=== PATIENT | male | born 1950 | race Caucasian/White ===

== ENCOUNTER 2017-09-16 07:31 | Emergency (ER) | payer OTHER ==
[~2017-09-16] VITALS: Ht 172.7 cm; Wt 90.7 kg
[~2017-09-16 07:31] MED LIST: ASPI325; ASPI325 PO; ASPI81CH PO; ASPI81EC PO; AZAT50 PO; AZIT250 PO; BENZ100A PO; CIPR500 PO; D3-20002000 UNIT PO; EXEN5PENI SQ; EXENATIDE; FISH1000 PO; FLUT220OIA INH; GLIP10 PO; GLIP10ER PO; Glucagon Emergen1 MG IJ; HYDMOR2 PO; INSU100I6; INSULANI SC; INSULANPEN SQ; INTE30I SC; LEVO750 PO; LISI5 PO; LOSA25 PO; METF500 PO; METF500C; OMEP20ER PO; OXCA300 PO; PIOG45; PIOG45 PO; PRAV20 PO; PRAV40 PO; PRED20 PO; Pravachol80 MG PO; [UNRECOGNIZED DRUG - OTHER]; [UNRECOGNIZED DRUG - REMARK]
[2017-09-16] MEDS ORDERED: GLIP10ER PO (07:55)
[2017-09-16] MEDS ORDERED: LIRA0.6P (07:55)
[2017-09-16] MEDS ORDERED: LOSA25 PO (07:55)
[2017-09-16] MEDS ORDERED: INSDET100 (07:55)
[2017-09-16] MEDS ORDERED: METF500 PO (07:56)
[2017-09-16] MEDS ORDERED: TAMS.4ER PO (07:56)
[2017-09-16] MEDS ORDERED: ATOR40TA PO (07:56)
[2017-09-16] MEDS ORDERED: ASPI81CH PO (07:56)
[2017-09-16] MEDS ORDERED: PIOG30 PO (07:56)
[2017-09-16] MEDS ORDERED: FISH OIL EC 1,1 EAC1 PO (07:57)
[2017-09-16] MEDS ORDERED: Omeprazole20 M1 PO (07:57)
[2017-09-16] MEDS ORDERED: BIOTIN10000 MC1 PO (07:57)
[2017-09-16] MEDS ORDERED: CHOL10002 (07:58)
[2017-09-16 08:32] LABS: BASOPHILS ABSOLUTE AUTO 0.05 K/mm3 (0.00-0.23); BASOPHILS PERCENT AUTO 0 % (0-2); EOSINOPHILS ABSOLUTE AUTO 0.31 K/mm3 (0.00-0.68); EOSINOPHILS PERCENT AUTO 2 % (0-6); IMMATURE GRAN ABSOLUTE AUTO 0.07 K/mm3 (0.00-0.10); IMMATURE GRAN PERCENT AUTO 1 % (0-1); LYMPHOCYTES ABSOLUTE AUTO 0.94 K/mm3 (0.84-5.20); LYMPHOCYTES PERCENT AUTO 7 % (21-46); MONOCYTES ABSOLUTE AUTO 1.24 K/mm3 (0.16-1.47); MONOCYTES PERCENT AUTO 10 % (4-13); Mean Corpuscular HGB 31.6 pg (26.0-34.0); Mean Corpuscular HGB Conc 33.3 g/dL (31.5-36.5); Mean Corpuscular Volume 95 fL (80-100); Mean Platelet Volume 10.4 fL (9.1-12.4); NEUTROPHILS ABSOLUTE AUTO 10.05 K/mm3 (1.96-9.15); NEUTROPHILS PERCENT AUTO 79 % (41-73); Platelet Count 210 K/mm3 (150-400); RDW Coefficient Variation 13.4 % (11.7-14.2); RDW Standard Deviation 46.8 fL (35.1-46.3); Red Blood Cell Count 4.12 M/mm3 (4.30-5.90); White Blood Cell Count 12.66 K/mm3 (4.00-11.30)
[2017-09-16 08:45] LABS: Alanine Aminotransfer (ALT/SGP 22 U/L (12-78); Albumin, Blood 3.4 g/dL (3.4-5.0); Albumin/Globulin Ratio 0.9 (0.8-1.8); Alk Phos 73 U/L (50-136); Anion Gap 10 mmol/L (6-16); Aspartate Aminotrans (AST/SGOT 14 U/L (12-37); Bilirubin, Total 0.5 mg/dL (0.1-1.0); Blood Urea Nitrogen 21 mg/dL (8-24); Bun/Creatinine Ratio 29.6 (12.0-20.0); CO2, Blood 23 mmol/L (21-32); Calcium, Blood 8.7 mg/dL (8.5-10.1); Chloride, Blood 109 mmol/L (98-108); Creatinine, Blood 0.71 mg/dL (0.60-1.20); Globulin, Blood 3.7 g/dL (2.2-4.0); Glomerular Filtration Rate >60 (60-); Glucose, Blood 113 mg/dL (70-99); Sodium, Blood 142 mmol/L (136-145); Total Protein, Blood 7.1 g/dL (6.4-8.2)
[2017-09-16] MEDS ORDERED: Loperamide2 MG PO (09:00)
== END 2017-09-16 10:49 | disposition home or self-care (01) ==
LOC: ER 07:31
PROVIDERS: Physician Assistant
DX: R19.7 Diarrhea, unspecified (principal); E11.9 Type 2 diabetes mellitus without complications; Z87.891 Personal history of nicotine dependence; Z88.8 Allergy status to other drugs, medicaments and biological substances; Z79.4 Long term (current) use of insulin; Z79.82 Long term (current) use of aspirin; Z79.899 Other long term (current) drug therapy
CPT/HCPCS: 36415; 80053; 85025; 96360; 96361; 99283; J2405; J7030

== ENCOUNTER → 2017-12-02 | Outpatient (CLI) | payer OTHER ==
[~2017-12-02] MED LIST changes: +ATOR40TA PO; +BIOTIN10000 MC1 PO; +CHOL10002; +FISH OIL EC 1,1 EAC1 PO; +INSDET100; +LIRA0.6P; +Loperamide2 MG PO; +Omeprazole20 M1 PO; +PIOG30 PO; +TAMS.4ER PO
[2017-12-02 16:41] LABS: Appearance, Urine Hazy (Clear); Bilirubin, Urine Neg (Neg); Blood, Urine 1+ (Neg); Color, Urine Yellow (P-Yellow); Glucose Qualitative, Urine Neg (Neg); Ketones, Urine Neg (Neg); Leukocyte Esterase, Urine 2+ (Neg); Nitrite, Urine Neg (Neg); Protein, Urine Neg (Neg); Specific Gravity, Urine 1.005 (1.003-1.022); Urobilinogen, Urine NORM (Normal)
[2017-12-02 17:16] LABS: Bacteria Many /hpf; Squamous Epithelial Cells Rare /hpf (Few)
== END | disposition home or self-care (01) ==
LOC: LAB 16:29 → LAB SHORT 16:29
PROVIDERS: Internal Medicine Hematology & Oncology
DX: R39.15 Urgency of urination (principal); R35.0 Frequency of micturition
CPT/HCPCS: 81001; 87086; 87186

== ENCOUNTER 2020-07-21 20:10 | Observation (INO) | payer OTHER ==
[~2020-07-21] VITALS: Ht 172.7 cm; Wt 88.5 kg
[2020-07-21 20:53] LABS: BASOPHILS ABSOLUTE AUTO 0.05 K/mm3 (0.00-0.23); BASOPHILS PERCENT AUTO 1 % (0-2); EOSINOPHILS ABSOLUTE AUTO 0.15 K/mm3 (0.00-0.68); EOSINOPHILS PERCENT AUTO 2 % (0-6); Hematocrit 39.6 % (37.0-53.0); Hemoglobin 12.8 g/dL (13.5-17.5); IMMATURE GRAN ABSOLUTE AUTO 0.02 K/mm3 (0.00-0.10); IMMATURE GRAN PERCENT AUTO 0 % (0-1); LYMPHOCYTES PERCENT AUTO 32 % (21-46); MONOCYTES ABSOLUTE AUTO 0.73 K/mm3 (0.16-1.47); MONOCYTES PERCENT AUTO 11 % (4-13); Mean Corpuscular HGB 30.9 pg (26.0-34.0); Mean Corpuscular HGB Conc 32.3 g/dL (31.5-36.5); Mean Corpuscular Volume 96 fL (80-100); Mean Platelet Volume 10.2 fL (9.1-12.4); NEUTROPHILS PERCENT AUTO 54 % (41-73); Platelet Count 203 K/mm3 (150-400); RDW Coefficient Variation 13.2 % (11.7-14.2); Red Blood Cell Count 4.14 M/mm3 (4.30-5.90); White Blood Cell Count 6.65 K/mm3 (4.00-11.30)
[2020-07-21 21:13] LABS: Alanine Aminotransfer (ALT/SGP 24 U/L (12-78); Albumin, Blood 3.6 g/dL (3.4-5.0); Albumin/Globulin Ratio 0.9 (0.8-1.8); Alk Phos 85 U/L (50-136); Anion Gap 7 mmol/L (6-16); Aspartate Aminotrans (AST/SGOT 15 U/L (12-37); Bilirubin, Total 0.3 mg/dL (0.1-1.0); Blood Urea Nitrogen 28 mg/dL (8-24); Bun/Creatinine Ratio 28.5 (12.0-20.0); CO2, Blood 26 mmol/L (21-32); Calcium, Blood 9.2 mg/dL (8.5-10.1); Chloride, Blood 109 mmol/L (98-108); Creatinine, Blood 0.98 mg/dL (0.60-1.20); Globulin, Blood 3.8 g/dL (2.2-4.0); Glomerular Filtration Rate >60 (60-); Glucose, Blood 106 mg/dL (70-99); Potassium, Blood 4.1 mmol/L (3.5-5.5); Sodium, Blood 142 mmol/L (136-145); Total Protein, Blood 7.4 g/dL (6.4-8.2); Troponin I <0.015 ng/mL (0.000-0.040)
--- NOTE | 2020-07-22 03:32 | NUR ---
PT ADMITTED FROM ER AT APPROX 2345. PT A&O X4. DURING ASSESSMENT, PT NOTED TO HAVE INTERMITTENT SLURRED SPEECH AND EXPRESSIVE APHASIA. PT BECOMING FRUSTURATED DURING THESE EPISODES. WHILE PATIENT WAS SIGNING BLOOD CONSENT, RT ARM BECAME WEAK AND NUMB. AFTER APPROX 20 SECONDS PT WAS ABLE TO USE ARM AGAIN. HE REPORTS THIS HAS BEEN HAPPENING INTERMITTENTLY THROUGHOUT THE DAY. PT REPORTS HX OF MULTIPLE SLEROSIS AND USES CANE AT BASELINE. LIVES BY HIMSELF, HOWEVER HIS DAUGHTER CHECKS IN WITH HIM FREQUENTLY AND COMPLETES DESIGN CENTER CONSULTANT. PT WEARING ATTENTS D/T INCONTINENCE. PT MEDICATED WITH PLAVIX PER ORDERS. IVF INFUSING PER EMAR. WILL CTM.
[2020-07-22 05:01] LABS: BASOPHILS ABSOLUTE AUTO 0.05 K/mm3 (0.00-0.23); BASOPHILS PERCENT AUTO 1 % (0-2); EOSINOPHILS ABSOLUTE AUTO 0.19 K/mm3 (0.00-0.68); EOSINOPHILS PERCENT AUTO 3 % (0-6); Hemoglobin 11.7 g/dL (13.5-17.5); IMMATURE GRAN ABSOLUTE AUTO 0.03 K/mm3 (0.00-0.10); IMMATURE GRAN PERCENT AUTO 1 % (0-1); LYMPHOCYTES ABSOLUTE AUTO 1.77 K/mm3 (0.84-5.20); LYMPHOCYTES PERCENT AUTO 31 % (21-46); MONOCYTES PERCENT AUTO 12 % (4-13); Mean Corpuscular HGB 30.3 pg (26.0-34.0); Mean Corpuscular HGB Conc 31.6 g/dL (31.5-36.5); Mean Corpuscular Volume 96 fL (80-100); Mean Platelet Volume 10.5 fL (9.1-12.4); NEUTROPHILS PERCENT AUTO 52 % (41-73); Platelet Count 191 K/mm3 (150-400); RDW Coefficient Variation 13.2 % (11.7-14.2); RDW Standard Deviation 46.5 fL (35.1-46.3); Red Blood Cell Count 3.86 M/mm3 (4.30-5.90); White Blood Cell Count 5.74 K/mm3 (4.00-11.30)
[2020-07-22 05:21] LABS: Alanine Aminotransfer (ALT/SGP 20 U/L (12-78); Albumin, Blood 3.2 g/dL (3.4-5.0); Albumin/Globulin Ratio 0.9 (0.8-1.8); Alk Phos 82 U/L (50-136); Anion Gap 8 mmol/L (6-16); Aspartate Aminotrans (AST/SGOT 13 U/L (12-37); Bilirubin, Total 0.3 mg/dL (0.1-1.0); Blood Urea Nitrogen 23 mg/dL (8-24); Bun/Creatinine Ratio 25.3 (12.0-20.0); CO2, Blood 26 mmol/L (21-32); Calcium, Blood 8.9 mg/dL (8.5-10.1); Chloride, Blood 108 mmol/L (98-108); Creatinine, Blood 0.91 mg/dL (0.60-1.20); Globulin, Blood 3.4 g/dL (2.2-4.0); Glomerular Filtration Rate >60 (60-); Glucose, Blood 119 mg/dL (70-99); Sodium, Blood 142 mmol/L (136-145); Total Protein, Blood 6.6 g/dL (6.4-8.2)
[2020-07-22] MEDS ORDERED: Plavix75 MG PO (12:18)
--- NOTE | 2020-07-22 14:16 | NUR ---
DISHCARGE PT LEFT VIA WHEELCHAIR WITH DAUGHTER. ALL BELONGINGS SENT WITH PATIENT. CANE IN HAND. SCRIPTS SENT TO PHARMACY AND PT EDUCATED ON IMPORTANCE OF FALL PREVENTION AND FOLLOWING UP WITH H.H. IV REMOVED. PT HAD NO FURTHER QUESTIONS.
== END 2020-07-22 14:10 | disposition home or self-care (01) ==
LOC: ER 20:10 → SURS 20:11
PROVIDERS: Physician Assistant; ADMIT Internal Medicine
DX: I63.9 Cerebral infarction, unspecified (principal); R47.81 Slurred speech; R20.0 Anesthesia of skin; R47.01 Aphasia; I65.22 Occlusion and stenosis of left carotid artery; E11.9 Type 2 diabetes mellitus without complications; I10 Essential (primary) hypertension; E78.5 Hyperlipidemia, unspecified; K21.9 Gastro-esophageal reflux disease without esophagitis; Z88.8 Allergy status to other drugs, medicaments and biological substances; Z87.891 Personal history of nicotine dependence; Z79.4 Long term (current) use of insulin
CPT/HCPCS: 36415; 70450; 70496; 70498; 80053; 82947; 84484; 85025; 92523; 93005; 93010; 96372; 97110; 97116; 97162; 99285-25; A9270; G0378; J1650; J7030; Q9967

== ENCOUNTER 2021-06-29 16:17 | Emergency (ER) | payer OTHER ==
[~2021-06-29] VITALS: Ht 172.7 cm; Wt 85.3 kg
[~2021-06-29 16:17] MED LIST changes: +Plavix75 MG PO
[2021-06-29 17:47] LABS: BASOPHILS ABSOLUTE AUTO 0.04 K/mm3 (0.00-0.23); BASOPHILS PERCENT AUTO 0 % (0-2); EOSINOPHILS ABSOLUTE AUTO 0.15 K/mm3 (0.00-0.68); EOSINOPHILS PERCENT AUTO 2 % (0-6); Hematocrit 39.8 % (37.0-53.0); Hemoglobin 13.4 g/dL (13.5-17.5); IMMATURE GRAN ABSOLUTE AUTO 0.07 K/mm3 (0.00-0.10); IMMATURE GRAN PERCENT AUTO 1 % (0-1); LYMPHOCYTES ABSOLUTE AUTO 1.37 K/mm3 (0.84-5.20); LYMPHOCYTES PERCENT AUTO 14 % (21-46); MONOCYTES ABSOLUTE AUTO 0.69 K/mm3 (0.16-1.47); MONOCYTES PERCENT AUTO 7 % (4-13); Mean Corpuscular HGB 31.2 pg (26.0-34.0); Mean Corpuscular HGB Conc 33.7 g/dL (31.5-36.5); Mean Corpuscular Volume 93 fL (80-100); Mean Platelet Volume 10.4 fL (9.1-12.4); NEUTROPHILS ABSOLUTE AUTO 7.42 K/mm3 (1.96-9.15); NEUTROPHILS PERCENT AUTO 76 % (41-73); Platelet Count 220 K/mm3 (150-400); RDW Coefficient Variation 13.1 % (11.7-14.2); RDW Standard Deviation 44.4 fL (35.1-46.3); Red Blood Cell Count 4.29 M/mm3 (4.30-5.90); White Blood Cell Count 9.74 K/mm3 (4.00-11.30)
[2021-06-29 18:03] LABS: Alanine Aminotransfer (ALT/SGP 21 U/L (12-78); Albumin/Globulin Ratio 1.2 (0.8-1.8); Alk Phos 89 U/L (50-136); Anion Gap 7 mmol/L (6-16); Aspartate Aminotrans (AST/SGOT 14 U/L (12-37); Bilirubin, Total 0.4 mg/dL (0.1-1.0); Blood Urea Nitrogen 27 mg/dL (8-24); Bun/Creatinine Ratio 28.7 (12.0-20.0); CO2, Blood 25 mmol/L (21-32); Calcium, Blood 9.3 mg/dL (8.5-10.1); Chloride, Blood 108 mmol/L (98-108); Creatinine, Blood 0.94 mg/dL (0.60-1.20); Globulin, Blood 3.4 g/dL (2.2-4.0); Glomerular Filtration Rate >60 (60-); Glucose, Blood 204 mg/dL (70-99); Potassium, Blood 4.2 mmol/L (3.5-5.5); Sodium, Blood 140 mmol/L (136-145); Total Protein, Blood 7.4 g/dL (6.4-8.2)
== END 2021-06-29 19:51 | disposition home or self-care (01) ==
LOC: ER 16:17
PROVIDERS: Physician Assistant
DX: S16.1XXA Strain of muscle, fascia and tendon at neck level, initial encounter (principal); M54.6 Pain in thoracic spine; E11.9 Type 2 diabetes mellitus without complications; Z88.8 Allergy status to other drugs, medicaments and biological substances; Z79.899 Other long term (current) drug therapy; Z79.4 Long term (current) use of insulin; Z79.82 Long term (current) use of aspirin; Z79.02 Long term (current) use of antithrombotics/antiplatelets; V49.40XA Driver injured in collision with unspecified motor vehicles in traffic accident, initial encounter
CPT/HCPCS: 70450; 71260; 72125; 80053; 83690; 85025; Q9967

== ENCOUNTER 2022-05-23 12:14 | Emergency (ER) | payer OTHER ==
[~2022-05-23] VITALS: Ht 172.7 cm; Wt 81.7 kg
[2022-05-23 13:25] LABS: BASOPHILS ABSOLUTE AUTO 0.03 K/mm3 (0.00-0.23); BASOPHILS PERCENT AUTO 0 % (0-2); EOSINOPHILS PERCENT AUTO 0 % (0-6); Hematocrit 39.3 % (37.0-53.0); Hemoglobin 13.3 g/dL (13.5-17.5); IMMATURE GRAN ABSOLUTE AUTO 0.02 K/mm3 (0.00-0.10); IMMATURE GRAN PERCENT AUTO 0 % (0-1); LYMPHOCYTES ABSOLUTE AUTO 0.71 K/mm3 (0.84-5.20); LYMPHOCYTES PERCENT AUTO 8 % (21-46); MONOCYTES ABSOLUTE AUTO 1.11 K/mm3 (0.16-1.47); MONOCYTES PERCENT AUTO 13 % (4-13); Mean Corpuscular HGB 31.9 pg (26.0-34.0); Mean Corpuscular HGB Conc 33.8 g/dL (31.5-36.5); Mean Corpuscular Volume 94 fL (80-100); Mean Platelet Volume 10.6 fL (9.1-12.4); NEUTROPHILS PERCENT AUTO 79 % (41-73); Platelet Count 164 K/mm3 (150-400); RDW Coefficient Variation 12.7 % (11.7-14.2); RDW Standard Deviation 43.9 fL (35.1-46.3); Red Blood Cell Count 4.17 M/mm3 (4.30-5.90); White Blood Cell Count 8.77 K/mm3 (4.00-11.30)
[2022-05-23 13:39] LABS: Influenza B, PCR NEGATIVE (NEGATIVE); Resp Syncytial Virus, PCR NEGATIVE (NEGATIVE); SARS-Cov-2 (COVID-19) PCR, MMC NEGATIVE (NEGATIVE)
[2022-05-23 13:41] LABS: Magnesium, Blood 1.5 mg/dL (1.6-2.4)
[2022-05-23 13:41] LABS: Influenza A, PCR POSITIVE (NEGATIVE)
[2022-05-23 13:46] LABS: Albumin, Blood 3.3 g/dL (3.4-5.0); Albumin/Globulin Ratio 0.8 (0.8-1.8); Bilirubin, Total 0.4 mg/dL (0.1-1.0); Bun/Creatinine Ratio 23.4 (12.0-20.0); Calcium, Blood 8.6 mg/dL (8.5-10.1); Creatinine, Blood 1.11 mg/dL (0.60-1.20); Potassium, Blood 3.9 mmol/L (3.5-5.5); Total Protein, Blood 7.3 g/dL (6.4-8.2)
== END 2022-05-23 16:28 | disposition home or self-care (01) ==
LOC: ER 12:14
PROVIDERS: Physician Assistant; Student in an Organized Health Care Education/Training Program
DX: J10.1 Influenza due to other identified influenza virus with other respiratory manifestations (principal); E86.0 Dehydration; E83.42 Hypomagnesemia; R07.81 Pleurodynia; E11.9 Type 2 diabetes mellitus without complications; E78.5 Hyperlipidemia, unspecified; K21.9 Gastro-esophageal reflux disease without esophagitis; J44.9 Chronic obstructive pulmonary disease, unspecified; Z20.822 Contact with and (suspected) exposure to COVID-19; Z79.899 Other long term (current) drug therapy; Z79.4 Long term (current) use of insulin; Z79.82 Long term (current) use of aspirin; Z88.8 Allergy status to other drugs, medicaments and biological substances; Z86.73 Personal history of transient ischemic attack (TIA), and cerebral infarction without residual deficits
CPT/HCPCS: 0241U; 71045; 80053; 83690; 83735; 84484; 85025; 93005; 93010; 94640; 94664; J1885; J3475; J7030

== ENCOUNTER → 2022-12-23 | Outpatient (CLI) | payer OTHER | END | disposition home or self-care (01) | LOC: LAB SHORT 15:21 → LAB 15:21 | DX: N39.0 Urinary tract infection, site not specified (principal) | CPT/HCPCS: 87077; 87086; 87186 ==

== ENCOUNTER 2023-06-30 23:07 | Emergency (ER) | payer OTHER ==
[~2023-06-30] VITALS: Ht 165.1 cm; Wt 72.6 kg
[2023-07-01 02:10] VITALS: BP 118/97
[2023-07-01 02:12] LABS: Source, Urine Straight Cath
[2023-07-01 02:33] LABS: Bilirubin, Urine Neg (Neg); Blood, Urine 5+ (Neg); Glucose Qualitative, Urine 2+ (Neg); Ketones, Urine Neg (Neg); Leukocyte Esterase, Urine 3+ (Neg); Nitrite, Urine Neg (Neg); Protein, Urine 3+ (Neg); Specific Gravity, Urine 1.015 (1.003-1.022); Urobilinogen, Urine NORM (Normal)
[2023-07-01 03:25] LABS: Appearance, Urine Hazy (Clear); Color, Urine Yellow (P-Yellow)
[2023-07-01 03:26] LABS: Bacteria Many /hpf; Squamous Epithelial Cells Mod /hpf (Few); White Blood Cells, Urine 50-100 /hpf (0-5)
[2023-07-01] MEDS ORDERED: CEPH500 PO (03:31)
== END 2023-07-01 03:40 | disposition home or self-care (01) ==
LOC: ER 23:07
PROVIDERS: Physician Assistant
DX: N39.0 Urinary tract infection, site not specified (principal); T83.89XA Other specified complication of genitourinary prosthetic devices, implants and grafts, initial encounter; J44.9 Chronic obstructive pulmonary disease, unspecified; E11.9 Type 2 diabetes mellitus without complications; K21.9 Gastro-esophageal reflux disease without esophagitis; E78.5 Hyperlipidemia, unspecified; Z88.8 Allergy status to other drugs, medicaments and biological substances; Z79.84 Long term (current) use of oral hypoglycemic drugs; Z79.4 Long term (current) use of insulin; Z79.82 Long term (current) use of aspirin; Z79.899 Other long term (current) drug therapy
CPT/HCPCS: 51102; 81001; 87086; 99283-25; A9270

== ENCOUNTER 2024-03-05 10:32 | Inpatient (IN) | payer OTHER ==
[~2024-03-05] VITALS: Ht 172.7 cm; Wt 77.8 kg
[~2024-03-05 10:32] MED LIST changes: +CEPH500 PO; +LOSA50 PO; -Omeprazole20 M1 PO
[2024-03-05 11:46] LABS: BASOPHILS ABSOLUTE AUTO 0.04 K/mm3 (0.00-0.23); BASOPHILS PERCENT AUTO 0 % (0-2); EOSINOPHILS ABSOLUTE AUTO 0.03 K/mm3 (0.00-0.68); EOSINOPHILS PERCENT AUTO 0 % (0-6); Hemoglobin 12.7 g/dL (13.5-17.5); IMMATURE GRAN ABSOLUTE AUTO 0.06 K/mm3 (0.00-0.10); IMMATURE GRAN PERCENT AUTO 1 % (0-1); LYMPHOCYTES ABSOLUTE AUTO 1.05 K/mm3 (0.84-5.20); LYMPHOCYTES PERCENT AUTO 8 % (21-46); MONOCYTES ABSOLUTE AUTO 0.72 K/mm3 (0.16-1.47); MONOCYTES PERCENT AUTO 6 % (4-13); Mean Corpuscular HGB 31.4 pg (26.0-34.0); Mean Corpuscular HGB Conc 33.4 g/dL (31.5-36.5); Mean Corpuscular Volume 94 fL (80-100); Mean Platelet Volume 10.2 fL (9.1-12.4); NEUTROPHILS ABSOLUTE AUTO 10.87 K/mm3 (1.96-9.15); NEUTROPHILS PERCENT AUTO 85 % (41-73); Platelet Count 209 K/mm3 (150-400); RDW Coefficient Variation 13.3 % (11.7-14.2); RDW Standard Deviation 46.2 fL (35.1-46.3); Red Blood Cell Count 4.04 M/mm3 (4.30-5.90); White Blood Cell Count 12.77 K/mm3 (4.00-11.30)
[2024-03-05 12:10] LABS: Albumin, Blood 3.7 g/dL (3.4-5.0); Bilirubin, Total 0.5 mg/dL (0.1-1.0); Bun/Creatinine Ratio 14.1 (12.0-20.0); Calcium, Blood 8.8 mg/dL (8.5-10.1); Creatinine, Blood 0.78 mg/dL (0.60-1.20); Globulin, Blood 3.7 g/dL (2.2-4.0); Potassium, Blood 4.1 mmol/L (3.5-5.5); Total Protein, Blood 7.4 g/dL (6.4-8.2)
[2024-03-05] MEDS ORDERED: Morphine Sulfate 4 MG/1 ML Injection IV ONE (15:20)
[2024-03-05] MEDS ORDERED: Piperacillin/Tazobactam Sod 4.5 GM in NS 100 ML IV ONE (15:20)
[2024-03-05] MEDS ORDERED: NS 1,000 ML IV SCH ×2 (16:40→18:30)
[2024-03-05] MEDS ORDERED: FentaNYL Citrate 50 MCG/ML 2 ML Injection IV PRN (16:40)
[2024-03-05] MEDS ORDERED: Ondansetron HCl 2 MG / ML 2ML Vial IV PRN (16:40)
[2024-03-05] MEDS ORDERED: Pantoprazole Sodium 40 MG Injection IV SCH (17:00)
[2024-03-05 18:46] VITALS: BP 127/68
--- NOTE | 2024-03-05 19:20 | NUR ---
ARRIVAL TO FLOOR PT ARRIVED TO SURGICAL FLOOR VIA GOURNEY. SLID ONTO HOSPITAL BED. PT A&O X2, COULD NOT TELL US WHERE HE WAS OR WHAT YEAR IT WAS. HE COULD NOT RECALL HOW HE GOT HERE. CHANGED PT INTO HOSPITAL GOWN. UNABLE TO SIT UP OR SUPPORT HIMSELF. SUP PUBIC CATH DRAINING YELLOW URINE. COMPLAINTS OF BACK AND ABDOMINAL PAIN. BELLY FIRM TO TOUCH AND DISTENDED. ABLE TO SQUEEZE HANDS EQUALLY WITH A WEAK DEBT MANAGEMENT COUNSELOR. HAS DIFFICULTY FOLLOWING DIRECTIONS AND COMMANDS DURING NEURO ASSESSMENT. DR MCCLOUD CAME IN TO ASSESS PT, GAVE VERBAL ORDERS TO TRANSFER TO PCU. FLUID BOLUS CONTINUES TO INFUSE AT THIS TIME. BED ALARM ON. CALL LIGHT WITHIN REACH. REMAINS ON TELE.
[2024-03-05] MEDS ORDERED: OLANZapine 10 MG Vial IM ONE (20:30)
--- NOTE | 2024-03-05 20:45 | NUR ---
AT SHIFT CHANGE,DAY RECEPTION SPECIALIST REPORTED THAT DR MCCLOUD WOULD BE ARRIVING TO CHECK PT.PT WAS ADMITTED FROM ER AND HAS HAD TACHYCARDIA,CHANGE OF MENTATION NOTED PER ER STAFF,& INABILITY TO STATE SPECIFICS OF HEALTH HX INCLUDING HOW S/P CATH GETS CHANGED AT HOME,HOW LONG HE HAS HAD IT, WELL BEING UNABLE TO STATE WHY HE WAS ADMITTED TO ER TODAY.DR MCCLOUD EVALUATED PT AND STATED U/A TO BE OBTAINED VIA S/P CATH WITHOUT CHANGING DUE TO POSSIBILITY ONCE REMOVED WE MAY NOT BE ABLE TO REPLACE.DR MCCLOUD ORDERED TRANSFER TO PCU.WHILE PENDING TRANSFER,PT WAS BECOMING AGGITATED TRYING TO GET OOB WITHOUT ASSIST.I EXPLAINED TO PT ORDERS AND REASON FOR TRANSFER.PT CONTINUED CLEARLY NOT UNDERSTANDING OF SITUATION.TRANSFERRED PT TO PCU VIA BED.PCU CHARGE GIVEN INFO WE OBTAINED PER DAY SHIFT AND AGREED TO ACCEPT PT'S CARE.PT FAMILY CALLED AND WERE IN WAITING ROOM. I NOTIFIED THEM THEY WERE ABLE TO COME TO PT ROOM.
[2024-03-05] MEDS ORDERED: Ampicillin Sod/Sulbactam Sod 3 GM in NS 100 ML IV SCH (21:00)
[2024-03-05 22:23] LABS: Source, Urine Suprapubic Cath
[2024-03-05 23:01] LABS: Bilirubin, Urine Neg (Neg); Blood, Urine 4+ (Neg); Glucose Qualitative, Urine 3+ (Neg); Ketones, Urine 1+ (Neg); Leukocyte Esterase, Urine 3+ (Neg); Nitrite, Urine Neg (Neg); Protein, Urine 2+ (Neg); Specific Gravity, Urine 1.015 (1.003-1.022); Urobilinogen, Urine NORM (Normal)
[2024-03-05 23:40] LABS: Appearance, Urine Hazy (Clear); Bacteria Mod /hpf; Color, Urine Yellow (P-Yellow); Red Blood Cells, Urine 0-2 /hpf (0-2); Squamous Epithelial Cells Rare /hpf (Few); Yeast/Fungi Urine Few /hpf
[2024-03-05 23:49] VITALS: BP 120/72
[2024-03-06] VITALS (13 sets, daily range): BP systolic 96–131; BP diastolic 61–102
[2024-03-06 03:57] LABS: BASOPHILS ABSOLUTE AUTO 0.04 K/mm3 (0.00-0.23); BASOPHILS PERCENT AUTO 0 % (0-2); EOSINOPHILS ABSOLUTE AUTO 0.05 K/mm3 (0.00-0.68); EOSINOPHILS PERCENT AUTO 0 % (0-6); Hematocrit 37.2 % (37.0-53.0); Hemoglobin 12.7 g/dL (13.5-17.5); IMMATURE GRAN ABSOLUTE AUTO 0.12 K/mm3 (0.00-0.10); IMMATURE GRAN PERCENT AUTO 1 % (0-1); LYMPHOCYTES ABSOLUTE AUTO 1.35 K/mm3 (0.84-5.20); LYMPHOCYTES PERCENT AUTO 6 % (21-46); MONOCYTES ABSOLUTE AUTO 1.75 K/mm3 (0.16-1.47); MONOCYTES PERCENT AUTO 8 % (4-13); Mean Corpuscular HGB 31.3 pg (26.0-34.0); Mean Corpuscular HGB Conc 34.1 g/dL (31.5-36.5); Mean Corpuscular Volume 92 fL (80-100); Mean Platelet Volume 10.3 fL (9.1-12.4); NEUTROPHILS ABSOLUTE AUTO 18.78 K/mm3 (1.96-9.15); NEUTROPHILS PERCENT AUTO 85 % (41-73); Platelet Count 188 K/mm3 (150-400); RDW Coefficient Variation 13.4 % (11.7-14.2); RDW Standard Deviation 45.1 fL (35.1-46.3); Red Blood Cell Count 4.06 M/mm3 (4.30-5.90); White Blood Cell Count 22.09 K/mm3 (4.00-11.30)
[2024-03-06 04:54] LABS: Albumin, Blood 3.2 g/dL (3.4-5.0); Albumin/Globulin Ratio 0.9 (0.8-1.8); Bilirubin, Total 0.7 mg/dL (0.1-1.0); Bun/Creatinine Ratio 15.3 (12.0-20.0); Calcium, Blood 8.8 mg/dL (8.5-10.1); Creatinine, Blood 0.78 mg/dL (0.60-1.20); Globulin, Blood 3.5 g/dL (2.2-4.0); Potassium, Blood 3.9 mmol/L (3.5-5.5); Total Protein, Blood 6.7 g/dL (6.4-8.2)
--- NOTE | 2024-03-06 05:22 | NUR ---
SHIFT SUMMARY ASSUMED CARE OF PT ON 03/05/24 AT APPROXIMATELY 2146. PT TRANSFERRED FROM SURGICAL FLOOR TO PCU 9 DUE TO ACUTE AMS. PT IS ALERT ONLY TO PERSON, HE IS UNSURE OF DATE, SITUATION, OR LOCATION. HE IS ABLE TO FOLLOW SOME DIRECTIONS, HE IS COOPERATIVE OF CARES, BED ALARM ON FOR SAFETY. SUPRAPUBIC CATHETER CHANGED THIS SHIFT BY THIS RN. PT TOLERATED WELL, UA SENT TO LAB. CATHETER DRAINING YELLOW URINE TO GRAVITY. PT HAS COMPLAINT OF ABDOMINAL PAIN, MEDICATED PER EMAR. HE HAS REMAINED NPO. NS INFUSING AT 75ML/HR. HE IS RESTING QUIETLY IN BED, CALL LIGHT WITHIN REACH, BREATHING EVEN AND UNLABORED.
[2024-03-06] MEDS ORDERED: Insulin Human Lispro 100 Units/ML 3ML Syringe SC SCH (07:30)
[2024-03-06] MEDS ORDERED: Losartan Potassium 25 MG Tab PO SCH (09:00)
[2024-03-06] MEDS ORDERED: Aspirin 81 MG Chew PO SCH (09:00)
[2024-03-06] MEDS ORDERED: Insulin Glargine-Yfgn 100 Unit/mL 3 ML SYR SC SCH (09:00)
[2024-03-06] MEDS ORDERED: Tamsulosin HCl 0.4 MG Cap PO SCH (09:00)
[2024-03-06] MEDS ORDERED: ATOR40TA PO (10:12)
[2024-03-06] MEDS ORDERED: TOUJEO MAX300 UNIT/2 SC (10:13)
--- NOTE | 2024-03-06 18:02 | NUR ---
SHIFT SUMMARY PT A/OX2-3. PT DAUGHTER PRESENT FOR MOST OF SHIFT AWAITING TO SIGN CONSENT FORMS FOR PT. PT VSS THROUGHOUT SHIFT WITH O2 SATS IN THE 90'S ON RA. NO REPORT OF CHEST PAIN/PRESSURE. NO REPORT OF SOB/DYSPNEA. PT ENDORSED PAIN OF HIS ABD TREATED PER EMAR AND UNINTERUPTED REST PER PT REQUEST. PT NPO ALL SHIFT AWAITING FOR PROCEDURE. PT LEFT PCU FOR PROCEDURE AT 1800, DAUGHTER PRESENT AND WITH PT AT TIME OF HEADING TO PROCEDURE. PT SP CATHETER REMAINED PATENT, MIRTA URINE.
[2024-03-06] MEDS ORDERED: Lactated Ringer's 1,000 ML IV ONE (18:05)
[2024-03-06] MEDS ORDERED: Indocyanine Green 25 MG Vial IV STA (18:22)
[2024-03-06] MEDS ORDERED: Bupivacaine 0.5% HCl 5 MG/ML 30MLVIAL ONE (18:44)
[2024-03-06] MEDS ORDERED: propofoL 20 ML IV ONE (18:47)
[2024-03-06] MEDS ORDERED: FentaNYL Citrate 50 MCG/ML 2 ML Injection ONE ×3 (18:47→21:00)
[2024-03-06] MEDS ORDERED: FentaNYL Citrate 50 MCG/ML 2 ML Injection IV PRN ×2 (18:55→19:00)
[2024-03-06] MEDS ORDERED: Ketorolac Tromethamine 30mg Vial IV PRN (19:00)
[2024-03-06] MEDS ORDERED: HYDROmorphone HCl/Pf 1MG SYR IV PRN (19:00)
[2024-03-06] MEDS ORDERED: Morphine Sulfate 4 MG/1 ML Injection IV PRN (19:05)
[2024-03-06] MEDS ORDERED: Phenylephrine HCl 100 MCG/ML-NS 10MLSYR (1MG/10ML) ONE (19:05)
[2024-03-06] MEDS ORDERED: Metoclopramide HCl 5MG / ML 2ML Vial IV PRN (19:15)
[2024-03-06] MEDS ORDERED: Ondansetron HCl 2 MG / ML 2ML Vial IV PRN (19:15)
[2024-03-06] MEDS ORDERED: ePHEDrine Sulfate 50 MG/ML 1ML Injection IV PRN (19:20)
[2024-03-06] MEDS ORDERED: HydrALAZINE HCl 20 MG / ML 1ML Vial IV PRN (19:20)
[2024-03-06] MEDS ORDERED: Atropine Sulfate 0.4 MG/1 ML Vial IV PRN (19:20)
[2024-03-06] MEDS ORDERED: Labetalol HCL 5 MG/ML 4ML Injection (Single Dose) IV PRN (19:20)
[2024-03-06] MEDS ORDERED: Albuterol 2.5 MG/3 ML VIAL INH PRN (19:25)
[2024-03-06] MEDS ORDERED: ePHEDrine Sulfate 50 MG/ML 1ML Injection ONE (19:41)
[2024-03-06] MEDS ORDERED: Rocuronium Bromide 10 MG/ML 5ML Injection IV ONE (19:44)
[2024-03-06] MEDS ORDERED: Ondansetron HCl 2 MG / ML 2ML Vial ONE (20:47)
[2024-03-06] MEDS ORDERED: Sugammadex Sodium 200 MG/2ML SDV (100 MG/ML) ONE (20:48)
--- NOTE | 2024-03-06 22:52 | NUR ---
RETURN TO PCU PT RETURNED TO PCU 9 FROM PACU AT APPROXIMATELY 2205. PT SLID TO HOSPITAL BED. VSS, AFEBRILE, BP STABLE, SPO2 >93% ON 3L NC. HE DENIES CP OR SOB. ABDOMINAL PAIN MEDICATED PER EMAR. 4 LAP SITES TO ABDOMEN. SUPRAPUBIC CATH PATENT AND DRAINING DARK YELLOW URINE TO GRAVITY. PT IS RESTING QUIETLY IN BED, CALL LIGHT WITHIN REACH, BREATHING EVEN AND UNLABORED.
[2024-03-07 03:32] VITALS: BP 102/60
[2024-03-07 04:12] LABS: BASOPHILS ABSOLUTE AUTO 0.02 K/mm3 (0.00-0.23); BASOPHILS PERCENT AUTO 0 % (0-2); EOSINOPHILS PERCENT AUTO 0 % (0-6); Hematocrit 32.3 % (37.0-53.0); Hemoglobin 10.9 g/dL (13.5-17.5); IMMATURE GRAN ABSOLUTE AUTO 0.16 K/mm3 (0.00-0.10); IMMATURE GRAN PERCENT AUTO 1 % (0-1); LYMPHOCYTES ABSOLUTE AUTO 0.67 K/mm3 (0.84-5.20); LYMPHOCYTES PERCENT AUTO 4 % (21-46); MONOCYTES ABSOLUTE AUTO 0.93 K/mm3 (0.16-1.47); MONOCYTES PERCENT AUTO 6 % (4-13); Mean Corpuscular HGB 31.2 pg (26.0-34.0); Mean Corpuscular HGB Conc 33.7 g/dL (31.5-36.5); Mean Corpuscular Volume 93 fL (80-100); Mean Platelet Volume 10.6 fL (9.1-12.4); NEUTROPHILS ABSOLUTE AUTO 14.96 K/mm3 (1.96-9.15); NEUTROPHILS PERCENT AUTO 89 % (41-73); Platelet Count 167 K/mm3 (150-400); RDW Coefficient Variation 13.8 % (11.7-14.2); Red Blood Cell Count 3.49 M/mm3 (4.30-5.90); White Blood Cell Count 16.74 K/mm3 (4.00-11.30)
[2024-03-07 04:28] LABS: Bun/Creatinine Ratio 21.8 (12.0-20.0); Calcium, Blood 8.2 mg/dL (8.5-10.1); Creatinine, Blood 1.01 mg/dL (0.60-1.20); Potassium, Blood 4.3 mmol/L (3.5-5.5)
--- NOTE | 2024-03-07 05:03 | NUR ---
SHIFT SUMMARY PT IS ALERT ONLY TO PERSON AND LOCATION, HE IS UNSURE OF DATE OR SITUATION. HE IS ABLE TO FOLLOW DIRECTIONS, HE IS COOPERATIVE OF CARES, BED ALARM ON FOR SAFETY. SUPRAPUBIC CATHETER DRAINING DARK YELLOW URINE TO GRAVITY. PT RETURNED TO PCU FROM PACU AFTER LAP CHOLECYSTECTOMY. 4 LAP SITES APPEAR INTACT AND ARE FREE FROM BLEEDING OR REDNESS. PAIN MEDICATED PER EMAR, ALTHOUGH HE REPORTS THAT HIS PAIN IS MUCH IMPROVED FROM PREVIOUSLY. DIET ADVANCED TO CLEAR LIQUID, HE IS TOLERATING THIS WELL. IN AM HE MAY ADVANCE DIET TOLERATED. HE IS RESTING QUIETLY IN BED, CALL LIGHT WITHIN REACH, BREATHING EVEN AND UNLABORED.
[2024-03-07 07:19] VITALS: BP 110/66
[2024-03-07] MEDS ORDERED: Insulin Glargine-Yfgn 100 Unit/mL 3 ML SYR SC SCH (08:00)
[2024-03-07] MEDS ORDERED: Atorvastatin 40 MG Tab PO SCH (09:00)
[2024-03-07] MEDS ORDERED: Enoxaparin 40 MG/0.4 ML SYR SC SCH (09:00)
[2024-03-07] MEDS ORDERED: ONDA4ODT PO (11:07)
[2024-03-07] MEDS ORDERED: AMOCLA875 PO (11:07)
[2024-03-07] MEDS ORDERED: VISBIOME 112.51 EACH PO (11:08)
[2024-03-07 11:25] VITALS: BP 97/72
--- NOTE | 2024-03-07 13:18 | NUR ---
DISCHARGE SUMMARY PT A&O, ABLE TO MAKE NEEDS KNOWN. SP02>90% ON RA. HR NSR, HR 90'S. VSS. PT S/P LAP ALAN. DENIES PAIN. STATES HE "FEELS SO MUCH BETTER". DENIES PAIN MEDICATION. SUPRAPUBIC CATHETER DRAINING TO GRAVITY. PT ABLE TO HAVE BM THIS AM AFTER COFFEE. PT AMBULATED W/ SBA AND FWW UP AND DOWN FRONT OF NURSES STATION THIS AM. MD EARL IN ROOM TO ASSESS, CLEARED FROM SURGICAL STANDPOINT. MD SIMPSON IN ROOM, PT TO DC. MEDICATIONS REVIEWED W/ PT AND FAXED TO [facility] PER PT REQUEST. DISCHARGE PAPERWORK REVIEWED WITH PT. PT VERBALIZED UNDERSTANDING. VERBALIZED FOLLOWUPS TO SCHEDULE. PT WHEELED TO [employer] W/ PERSONAL BELONGINGS.
== END 2024-03-07 11:44 | disposition home or self-care (01) | DRG 854 ==
LOC: ER 10:32 → PCU 10:33 → SURS 10:33 → PCU 11:31 → SURS 17:53 → PCU 21:05
PROVIDERS: Family Medicine Adult Medicine; Student in an Organized Health Care Education/Training Program; Surgery; ADMIT Internal Medicine
PROC: 3E03329 Introduction of Other Anti-infective into Peripheral Vein, Percutaneous Approach (ICD-10-PCS; 2024-03-06)
PROC: 8E0W4CZ Robotic Assisted Procedure of Trunk Region, Percutaneous Endoscopic Approach (ICD-10-PCS; 2024-03-06)
PROC: BF121ZZ Fluoroscopy of Gallbladder using Low Osmolar Contrast (ICD-10-PCS; 2024-03-06)
PROC: 0FT44ZZ Resection of Gallbladder, Percutaneous Endoscopic Approach (ICD-10-PCS; principal; 2024-03-06 17:00)
DX: A41.9 Sepsis, unspecified organism (principal); K81.0 Acute cholecystitis; K82.1 Hydrops of gallbladder; N39.0 Urinary tract infection, site not specified; K82.A1 Gangrene of gallbladder in cholecystitis; E78.5 Hyperlipidemia, unspecified; R01.1 Cardiac murmur, unspecified; K21.9 Gastro-esophageal reflux disease without esophagitis; G35 Multiple sclerosis; J44.9 Chronic obstructive pulmonary disease, unspecified; E11.65 Type 2 diabetes mellitus with hyperglycemia; Z88.8 Allergy status to other drugs, medicaments and biological substances; Z86.73 Personal history of transient ischemic attack (TIA), and cerebral infarction without residual deficits; Z79.82 Long term (current) use of aspirin; Z79.899 Other long term (current) drug therapy; Z79.4 Long term (current) use of insulin; Z79.84 Long term (current) use of oral hypoglycemic drugs; Z98.890 Other specified postprocedural states
CPT/HCPCS: 36415; 74177; 80048; 80053; 81001; 82947; 83036; 83690; 83880; 85025; 87086; 88304; 93005; 93010; 94762; 96365-59; 96375; 96376; 99285-25; A9270; G0378; J0295; J1650; J1815; J1885; J2270; J2371; J2405; J2470; J2543; J2704; J3010; J7030; J7120; Q9967

== ENCOUNTER 2024-12-31 19:42 | Inpatient (IN) | payer OTHER ==
[~2024-12-31] VITALS: Ht 170.2 cm; Wt 73.9 kg
[~2024-12-31 19:42] MED LIST changes: +AMOCLA875 PO; +Insulin Regular 100 UNIT/ML 10ML Vial SC SCH; +ONDA4ODT PO; +TOUJEO MAX300 UNIT/2 SC; +VISBIOME 112.51 EACH PO
[2024-12-31 20:25] LABS: BASOPHILS ABSOLUTE AUTO 0.04 K/mm3 (0.00-0.23); BASOPHILS PERCENT AUTO 1 % (0-2); EOSINOPHILS ABSOLUTE AUTO 0.14 K/mm3 (0.00-0.68); EOSINOPHILS PERCENT AUTO 2 % (0-6); Hematocrit 34.5 % (37.0-53.0); Hemoglobin 11.3 g/dL (13.5-17.5); IMMATURE GRAN ABSOLUTE AUTO 0.09 K/mm3 (0.00-0.10); IMMATURE GRAN PERCENT AUTO 1 % (0-1); LYMPHOCYTES ABSOLUTE AUTO 2.41 K/mm3 (0.84-5.20); LYMPHOCYTES PERCENT AUTO 29 % (21-46); MONOCYTES ABSOLUTE AUTO 0.55 K/mm3 (0.16-1.47); MONOCYTES PERCENT AUTO 7 % (4-13); Mean Corpuscular HGB Conc 32.8 g/dL (31.5-36.5); Mean Corpuscular Volume 93 fL (80-100); NEUTROPHILS ABSOLUTE AUTO 5.00 K/mm3 (1.96-9.15); NEUTROPHILS PERCENT AUTO 61 % (41-73); NRBC ABSOLUTE 0.00 K/mm3 (0.00-0.02); NRBC Auto 0.0 /100 WBC (0.0-0.2); Platelet Count 188 K/mm3 (150-400); RDW Coefficient Variation 13.6 % (11.7-14.2); RDW Standard Deviation 46.3 fL (35.1-46.3)
[2024-12-31] MEDS ORDERED: Morphine Sulfate 4 MG/1 ML Injection IV ONE ×2 (20:25→22:35)
[2024-12-31 20:56] LABS: Alanine Aminotransfer (ALT/SGP 25.0 U/L (12-78); Albumin, Blood 3.5 g/dL (3.4-5.0); Albumin/Globulin Ratio 1.0 (0.8-1.8); Anion Gap 6.0 mmol/L (3-11); Aspartate Aminotrans (AST/SGOT 13.0 U/L (12-37); Bilirubin, Total 0.4 mg/dL (0.1-1.0); Blood Urea Nitrogen 15.0 mg/dL (8-24); CO2, Blood 27.0 mmol/L (21-32); Calcium, Blood 8.8 mg/dL (8.5-10.1); Chloride, Blood 110.0 mmol/L (98-108); Creatinine, Blood 0.87 mg/dL (0.60-1.20); Globulin, Blood 3.6 g/dL (2.2-4.0); Glucose, Blood 175.0 mg/dL (70-99); Potassium, Blood 3.9 mmol/L (3.5-5.5); Sodium, Blood 139.0 mmol/L (136-145); Total Protein, Blood 7.1 g/dL (6.4-8.2)
[2024-12-31] MEDS ORDERED: FentaNYL Citrate 50 MCG/ML 2 ML Injection IV PRN (23:45)
[2025-01-01] MEDS ORDERED: Morphine Sulfate 4 MG/1 ML Injection IV PRN ×2 (00:05→05:00)
[2025-01-01] MEDS ORDERED: NS 1,000 ML IV SCH (01:25)
[2025-01-01 01:36] VITALS: BP 145/94
[2025-01-01 05:49] LABS: BASOPHILS ABSOLUTE AUTO 0.03 K/mm3 (0.00-0.23); BASOPHILS PERCENT AUTO 0 % (0-2); EOSINOPHILS ABSOLUTE AUTO 0.08 K/mm3 (0.00-0.68); EOSINOPHILS PERCENT AUTO 1 % (0-6); Hematocrit 34.2 % (37.0-53.0); Hemoglobin 11.1 g/dL (13.5-17.5); IMMATURE GRAN ABSOLUTE AUTO 0.04 K/mm3 (0.00-0.10); IMMATURE GRAN PERCENT AUTO 0 % (0-1); LYMPHOCYTES ABSOLUTE AUTO 1.81 K/mm3 (0.84-5.20); LYMPHOCYTES PERCENT AUTO 19 % (21-46); MONOCYTES ABSOLUTE AUTO 0.97 K/mm3 (0.16-1.47); MONOCYTES PERCENT AUTO 10 % (4-13); Mean Corpuscular HGB Conc 32.5 g/dL (31.5-36.5); Mean Corpuscular Volume 95 fL (80-100); NEUTROPHILS ABSOLUTE AUTO 6.48 K/mm3 (1.96-9.15); NEUTROPHILS PERCENT AUTO 69 % (41-73); NRBC ABSOLUTE 0.00 K/mm3 (0.00-0.02); NRBC Auto 0.0 /100 WBC (0.0-0.2); Platelet Count 181 K/mm3 (150-400); RDW Coefficient Variation 13.7 % (11.7-14.2); RDW Standard Deviation 47.8 fL (35.1-46.3)
[2025-01-01 06:02] LABS: Prothrombin Time Results 11.6 Sec (9.7-11.5)
[2025-01-01 06:25] LABS: Alanine Aminotransfer (ALT/SGP 22.0 U/L (12-78); Albumin, Blood 3.3 g/dL (3.4-5.0); Albumin/Globulin Ratio 1.0 (0.8-1.8); Anion Gap 7.0 mmol/L (3-11); Aspartate Aminotrans (AST/SGOT 11.0 U/L (12-37); Bilirubin, Total 0.4 mg/dL (0.1-1.0); Blood Urea Nitrogen 14.0 mg/dL (8-24); CO2, Blood 27.0 mmol/L (21-32); Calcium, Blood 8.8 mg/dL (8.5-10.1); Chloride, Blood 110.0 mmol/L (98-108); Creatinine, Blood 0.8 mg/dL (0.60-1.20); Globulin, Blood 3.4 g/dL (2.2-4.0); Glucose, Blood 186.0 mg/dL (70-99); Potassium, Blood 3.9 mmol/L (3.5-5.5); Sodium, Blood 140.0 mmol/L (136-145); Total Protein, Blood 6.7 g/dL (6.4-8.2)
[2025-01-01 07:34] VITALS: BP 143/73
[2025-01-01] MEDS ORDERED: Heparin Sodium,Porcine 5,000 UNIT/0.5 ML SDV SC SCH (09:00)
[2025-01-01] MEDS ORDERED: Enoxaparin 40 MG/0.4 ML SYR SC SCH (09:00)
[2025-01-01] MEDS ORDERED: HYDROmorphone HCl/Pf 1MG SYR IV PRN (13:45)
[2025-01-01] MEDS ORDERED: Lidocaine 4% 1 Patch TOP SCH (14:00)
[2025-01-01 15:05] VITALS: BP 144/71
[2025-01-01 18:36] VITALS: BP 126/88
[2025-01-02 03:13] VITALS: BP 113/63
--- NOTE | 2025-01-02 05:23 | NUR ---
SHIFT SUMMARY PT WITH AN EPISODE OF SEVERE PAIN AT THE BACK OF HEAD (SEE PREVIOUS NOTE); PAIN SUBSIDED. PT AWAITING PT/OT EVAL FOR FURTHER DISPO PLANNING. PT REPORTED TO DAY SHIFT THAT HE WAS DEPRESSED, SPIRITUAL CARE CONSULT PLACED. PT SUPRAPUBIC CATHETER PATENT; PER PATIENT CATH CHANGED BY UROLOGY MONTHLY AND WAS RECENTLY CHANGED.
--- NOTE | 2025-01-02 06:37 | NUR ---
PT REFUSED SPIRITUAL CARE CONSULT; ORDER D/C.
[2025-01-02 07:17] VITALS: BP 147/89
--- NOTE | 2025-01-02 07:30 | NUR ---
PT SCREENED FOR SI, SCORE LOW. DR ENRIQUEZ NOTIFIED, NO NEW ORDERS AT THIS TIME.
[2025-01-02 15:11] VITALS: BP 156/85
[2025-01-02] MEDS ORDERED: OXAYDO5 M1 PO (15:41)
--- NOTE | 2025-01-02 15:43 | NUR ---
IV REMOVED, INTACT. PT AWAITING DISCHARGE INSTRUCTIONS.
--- NOTE | 2025-01-02 15:55 | NUR ---
IV DC'D INTACT. PT DC'D INTO SELF CARE WITH PRINTED INSTRUCT AND WITH HANDWRITTEN RX OXYCODONE
== END 2025-01-02 15:51 | disposition home health service (06) | DRG 185 ==
LOC: ER 19:42 → SURS 19:43
PROVIDERS: Student in an Organized Health Care Education/Training Program; ADMIT Surgery
DX: S22.42XA Multiple fractures of ribs, left side, initial encounter for closed fracture (principal); E11.9 Type 2 diabetes mellitus without complications; G35 Multiple sclerosis; E78.5 Hyperlipidemia, unspecified; K21.9 Gastro-esophageal reflux disease without esophagitis; Z66 Do not resuscitate; J44.9 Chronic obstructive pulmonary disease, unspecified; D64.9 Anemia, unspecified; Z88.8 Allergy status to other drugs, medicaments and biological substances; Z79.4 Long term (current) use of insulin; Z79.84 Long term (current) use of oral hypoglycemic drugs; Z79.82 Long term (current) use of aspirin; Z79.899 Other long term (current) drug therapy; Z86.73 Personal history of transient ischemic attack (TIA), and cerebral infarction without residual deficits; Z90.49 Acquired absence of other specified parts of digestive tract; Z98.890 Other specified postprocedural states; W05.2XXA Fall from non-moving motorized mobility scooter, initial encounter
CPT/HCPCS: 36415; 70450; 71260; 72125; 74177; 80053; 82947; 85025; 85610; 93005; 93010; 94762; 96374-59; 96376; 97116; 97161; 97530; 99285-25; A9270; J1171; J1650; J1815; J2270; J3010; J7030; Q9967